=== PATIENT | male | born 1975 | race Caucasian/White ===

== ENCOUNTER → 2016-10-26 | Outpatient (REF) | LOC: WSOH 14:12 | DX: Z02.89 Encounter for other administrative examinations (principal) ==

== ENCOUNTER 2017-08-15 06:22 | Emergency (ER) | payer SELFPAY ==
[~2017-08-15] VITALS: Ht 175.3 cm; Wt 104.5 kg
[2017-08-15 06:26] VITALS: TEMP 99
[2017-08-15] MEDS ORDERED: CEPHALEXIN500 M1 PO (07:18)
[2017-08-15] MEDS ORDERED: PERCOCET 325 MG1 TA2 PO (07:18)
[2017-08-15 07:49] VITALS: BP 144/72; PULSE 90
== END 2017-08-15 07:56 | disposition home or self-care (01) ==
LOC: COL.ER 06:22
DX: S62.635B Displaced fracture of distal phalanx of left ring finger, initial encounter for open fracture (principal); I10 Essential (primary) hypertension; E78.5 Hyperlipidemia, unspecified; E11.9 Type 2 diabetes mellitus without complications; Z23 Encounter for immunization; W31.89XA Contact with other specified machinery, initial encounter; Y92.89 Other specified places as the place of occurrence of the external cause
CPT/HCPCS: J0690

== ENCOUNTER 2018-10-26 17:02 | Emergency (ER) | payer BC ==
[~2018-10-26] VITALS: Ht 172.7 cm; Wt 118.2 kg
[~2018-10-26 17:02] MED LIST: CEPHALEXIN500 M1 PO; PERCOCET 325 MG1 TA2 PO
[2018-10-26 17:21] VITALS: TEMP 98.1
[2018-10-26] MEDS ORDERED: PRIL40 PO (17:40)
[2018-10-26] MEDS ORDERED: VICTOZA6 MG/ML SQ (17:41)
[2018-10-26] MEDS ORDERED: LIPITOR 80MG80 MG PO (17:41)
[2018-10-26] MEDS ORDERED: CELEXA 20MG20 MG/TAB PO (17:41)
[2018-10-26] MEDS ORDERED: COZAAR100 MG PO (17:41)
[2018-10-26] MEDS ORDERED: GLUCOPHAGE1000 MG PO (17:41)
[2018-10-26] MEDS ORDERED: ACTOS 45MG45 MG/TAB PO (17:42)
[2018-10-26] MEDS ORDERED: VENTOLIN0.09 MG IH ×3 (19:03→19:52)
[2018-10-26] MEDS ORDERED: CHERATUSSIN AC240 ML PO (19:03)
[2018-10-26] MEDS ORDERED: DOXYCYCLINE 10100 MG PO ×3 (19:03→19:52)
[2018-10-26] MEDS ORDERED: PREDNISONE20 MG PO ×3 (19:06→19:52)
[2018-10-26 20:00] VITALS: BP 140/70; PULSE 88
== END 2018-10-26 20:01 | disposition home or self-care (01) ==
LOC: COL.ER 17:02
DX: J20.9 Acute bronchitis, unspecified (principal); E11.9 Type 2 diabetes mellitus without complications; Z79.4 Long term (current) use of insulin; Z79.84 Long term (current) use of oral hypoglycemic drugs; Z98.890 Other specified postprocedural states
CPT/HCPCS: J7512